=== PATIENT | female | born 1985 | race Caucasian/White ===

== ENCOUNTER → 2017-10-21 11:15 | Outpatient (CLI) | payer OTHER, SELFPAY ==
[2017-10-21 12:44] LABS: Absolute Lymphocyte Count 1.04 X10^3/ul (0.83-4.51); Absolute Neutrophil Count 6.4 X10^3/uL (2.0-7.7); Basophil# 0.01 X10^3/uL; Basophil% 0.1 % (0-1); Eosinophil# 0.02 X10^3/uL; Eosinophils% 0.3 % (0-5); Hematocrit 33.6 % (37-47); Hemoglobin 11.5 g/dl (12.0-15.0); Lymphocyte # 1.04 X10^3/ul (4.0); Lymphocyte % 13.4 % (19-41); Mean Corp Hgb Conc 34.2 g/gl (32-36); Mean Corpuscular Hgb 30.7 pg (27.0-32.0); Mean Corpuscular Volume 89.6 fL (81-99); Mean Platelet Vol. 9.6 fl (6.2-12.0); Monocyte# 0.33 X10^3/uL; Monocyte% 4.3 % (0-10); Neutrophil # 6.35 X10^3/uL (2.7-7.7); Neutrophil % 81.8 % (47-70); Platelet Count 242 K/mm3 (150-450); RBC Distribution Width CV 12.7 % (11.6-14.6); RBC Distribution Width SD 40.7 fl (35.1-43.9); Red Blood Count 3.75 M/mm3 (4.2-5.4); White Blood Count 7.8 K/mm3 (4.4-11.0)
[2017-10-21 12:51] LABS: POSITIVE COUNT NO; POSITIVE DIFFERENTIAL NO; POSITIVE MORPHOLOGY NO
[2017-10-22 10:56] LABS: HIV - WCH Non-Reactive (Nonreactive); Rubella IgG 8.1 IU/mL
[2017-10-22 14:36] LABS: HEPATITIS B SURFACE AG Negative (Negative)
[2017-10-24 05:19] LABS: Rapid Plasmin Reagin (RPR) NONREACTIVE (NONREACTIVE)
== END ==
PROVIDERS: Visit Provider Obstetrics & Gynecology
DX: Z34.90 Encounter for supervision of normal pregnancy, unspecified, unspecified trimester (principal)
CPT/HCPCS: 36415; 85025; 86592; 86703; 86762; 86850; 86900; 87340

== ENCOUNTER → 2017-10-21 12:32 | Outpatient (CLI) | payer SELFPAY ==
--- NOTE | 2017-10-21 12:38 | US_ITS ---
STUDY: SECOND AND THIRD TRIMESTER OBSTETRICAL ULTRASOUND - LIMITED REASON FOR EXAM: Female, 31 years old. Routine survey. LMP: 06/13/17 PRIOR ULTRASOUND: None. TECHNIQUE: Transabdominal ultrasound evaluation was performed. FINDINGS: There is a single intrauterine fetus. The fetus is in a cephalic presentation. There is demonstrated cardiac activity with a heart rate of 155 bpm. There is a normal amniotic fluid volume. The largest amniotic fluid pocket measures 4.9 x 6.5 cm. The placenta is posterior in location and is not low lying. There are Grade 1 placental changes. The cervix measures 4.6 cm in length. BIOMETRY: BPD: 4.06 cm: 18 weeks, 3 days HC: 14.58 cm: 17 weeks, 6 days AC: 12.96 cm: 18 weeks, 4 days FL: 2.80 cm: 18 weeks, 4 days Age by LMP: 18 weeks, 4 days. MARGARET by LMP: 03/20/2018. age by current US: 18 weeks, 3 days. MARGARET by current US: 03/21/2018. Estimated weight: 241 grams, +/- 35 grams US/OB Limited With Biometrics IMPRESSION: Single live intrauterine at 18 weeks, 3 days by current ultrasound with MARGARET of 03/21/2018. Heart rate of 155 bpm. No suspicious sonographic findings Electronically Signed: Rigo Bates MD at 10:24 EDT , Service support ,
== END ==
PROVIDERS: Visit Provider Obstetrics & Gynecology
DX: O09.30 Supervision of pregnancy with insufficient antenatal care, unspecified trimester (principal); Z3A.00 Weeks of gestation of pregnancy not specified
CPT/HCPCS: 76816

== ENCOUNTER → 2017-10-21 17:04 | Outpatient (CLI) | payer OTHER, SELFPAY | PROVIDERS: Visit Provider Obstetrics & Gynecology | DX: Z34.90 Encounter for supervision of normal pregnancy, unspecified, unspecified trimester (principal) | CPT/HCPCS: 87086; 87088 ==

== ENCOUNTER → 2018-01-26 14:07 | Outpatient (CLI) | payer OTHER, SELFPAY ==
[2018-01-26 15:05] LABS: Absolute Lymphocyte Count 1.46 X10^3/ul (0.83-4.51); Absolute Neutrophil Count 9.7 X10^3/uL (2.0-7.7); Basophil# 0.01 X10^3/uL; Basophil% 0.1 % (0-1); Eosinophil# 0.05 X10^3/uL; Eosinophils% 0.4 % (0-5); Hematocrit 33.5 % (37-47); Hemoglobin 11.5 g/dl (12.0-15.0); Lymphocyte # 1.46 X10^3/ul (4.0); Lymphocyte % 12.3 % (19-41); Mean Corp Hgb Conc 34.3 g/gl (32-36); Mean Corpuscular Hgb 31.3 pg (27.0-32.0); Mean Corpuscular Volume 91.3 fL (81-99); Mean Platelet Vol. 9.4 fl (6.2-12.0); Monocyte% 5.1 % (0-10); Neutrophil # 9.69 X10^3/uL (2.7-7.7); Neutrophil % 81.8 % (47-70); Platelet Count 246 K/mm3 (150-450); RBC Distribution Width CV 12.1 % (11.6-14.6); RBC Distribution Width SD 39.7 fl (35.1-43.9); Red Blood Count 3.67 M/mm3 (4.2-5.4); White Blood Count 11.8 K/mm3 (4.4-11.0)
[2018-01-26 15:06] LABS: POSITIVE COUNT NO; POSITIVE DIFFERENTIAL NO; POSITIVE MORPHOLOGY NO
[2018-01-26 15:32] LABS: Glucose Challenge Gest 1H 50g 110 mg/dL (70-140)
== END ==
LOC: PAVLAB 14:12
PROVIDERS: Family Provider Family Medicine; PCP Family Medicine; Referring Provider Obstetrics & Gynecology; Visit Provider Obstetrics & Gynecology
DX: Z34.90 Encounter for supervision of normal pregnancy, unspecified, unspecified trimester (principal)
CPT/HCPCS: 36415; 82950; 85025

== ENCOUNTER → 2018-02-23 19:58 | Outpatient (CLI) | payer OTHER, SELFPAY ==
[2018-02-23 21:50] LABS: Group B Strep DNA By PCR Negative (Negative); Internal Control PASS; Probe Check PASS; Specimen Processing Control PASS
== END ==
PROVIDERS: Family Provider Family Medicine; PCP Family Medicine; Referring Provider Obstetrics & Gynecology; Visit Provider Obstetrics & Gynecology
DX: Z34.90 Encounter for supervision of normal pregnancy, unspecified, unspecified trimester (principal)
CPT/HCPCS: 87081; 87653

== ENCOUNTER 2018-03-14 04:00 | Inpatient (IN) | payer SELFPAY ==
[2018-03-14 02:49] VITALS: BMI 31.5
[2018-03-14 04:50] LABS: Hematocrit 34.8 % (37-47); Hemoglobin 11.5 g/dl (12.0-15.0); Mean Corpuscular Hgb 29.9 pg (27.0-32.0); Mean Corpuscular Volume 90.6 fL (81-99); Mean Platelet Vol. 10.5 fl (6.2-12.0); Platelet Count 240 K/mm3 (150-450); RBC Distribution Width CV 12.2 % (11.6-14.6); RBC Distribution Width SD 39.8 fl (35.1-43.9); Red Blood Count 3.84 M/mm3 (4.2-5.4); White Blood Count 12.4 K/mm3 (4.4-11.0)
[2018-03-14 04:51] LABS: Scan Indicated on CBC? Y/N NO
--- NOTE | 2018-03-14 07:16 | PCM.HP.OB ---
- Problem List (1) Active labor at term Status: Acute (2) Rubella non-immune status, antepartum Status: Acute Comment: mmr pp (3) Supervision of normal Status: Acute Qualifiers: Comment: PRR MARGARET 03/20/18 PC DeidraCriss Nikia History Date of Admission: 03/14/18 Final MARGARET: 03/20/18 Gestational age: 39 Weeks and 1 Days History of this : This is a 32 year-old, at 39 weeks gestational age presents IAL with regular ctx. she made cervical change from 4-5 cm. she denies any abnormal bleeding or lof. she has had an uncomplicated . Allergies No Known Allergies Allergy (Verified 03/14/18 02:55) Home Medications: Home Medications vitamin#30 30 mg iron-10 mg iron-folic acid 1 mg-omg3 capsule 1 cap PO DAILY cap 02/23/18 Smoking Status: Never smoker Alcohol: None Number of Fetus(es): 1 Heart Tracing: fht 140 moderate variability reactive no decels cat I tracing TOCO Analysis: q4-6 History Past Pregnancies: Past PregnanciesPregancy History 4 Elective abortions Hx Para 3 Spontaneous abortions Hx # Term Pregnancies 3 Ectopic pregnancies Hx # Pregnancies Multiple births # of living children 3 Past Pregnancies Del. Date Name GA/Weeks Outcome Route Bth Weight Gen Labor Lgth Anesthesia Del Locatn Provider FOB 12/03/10 Evelyne 40 live - full term 7lb7 ounces Female none kylie kearns 03/04/13 Deidra 40 live - full term 7lb 14 ounces Female Kylie Kearns 08/11/15 Criss 40 live - full term 8 lbs 4 ounces Male [facility] Delivery Date: 08/11/15 On 12/01/17 @ 13:58 [employer] [employer] No issues during or delivery. Delivery Date: 03/04/13 On 12/01/17 @ 14:00 [facility] [employer] No issues during or delivery. Delivery Date: 12/03/10 On 12/01/17 @ 13:57 [facility] [employer] No issues during or delivery. Labs: Mom's Labs & Results 03/14/18 03/14/18 04:30 04:30 WBC 12.4 H RBC 3.84 L Hgb 11.5 L Hct 34.8 L MCV 90.6 MCH 29.9 MCHC 33.0 RDW 12.2 RDW Differential 39.8 Plt Count 240 MPV 10.5 Blood Type A POSITIVE Antibody Screen NEGATIVE Course Did the patient receive Yes care? Labs Blood Type: A RH: POSITIVE RPR/VDRL/Syphilis Nonreactive Rubella status Non-immune HbSAg Negative Date Done: 10/21/17 HIV/AIDS Non-Reactive Group B Strep: Negative Current Obstetrical History Gestational Diabetes No Incompetent Cervix No Infertility No IUGR No Macrosomia No Hypertension/Pre-eclampsia No Placenta Previa/Abruption No PTL/PROM No Uterine anomaly No Oligohydramnios No Polyhydramnios No Multiple gestation No Past Medical History Asthma No Diabetes No Hypertension No Heart disease No Mitral valve prolapse No Neurologic/Seizure disorder/ No Migraines Kidney disease No Liver disease No Varicosities No Clotting disorders/Hx of DVT No Thyroid Dysfunction No Other medical diseases No Psychiatric disorders No Major trauma No Abnormal PAP smear No Sleep apnea No Mammogram in the last 2 years No Social History Marital Status: Alleged father Nikia Kimble Hx Smoking No Smoking Status Never smoker Expected Delivery Method: Spontaneous Vaginal Describe any other labor & delivery plans:: OB Visit. MARGARET Calculator. Estimated Delivery Date 03/20/18. Based on LMP (certain) 06/13/17. Current WG 38w 4d. Number 1. Expected Delivery Route/Plan. . Specific Issue/Plans. flu vaccine: declined. tdap vaccine: declined. rhogam: na. LARC form signed: declined. labor support person: nikia. pain management: IV pain meds. cut cord/dad catch: : yes. PP control planned: . special requests: Review of Systems Constitutional: Denies: Fever, Malaise Eyes: Denies: Blurred vision, Vision Change HEENT: Denies: Head Aches, Visual Changes Cardiovascular: Denies: Chest Pain, Palpitations Respiratory: Denies: Cough, Shortness of Breath, Wheezing Gastrointestinal: Denies: Abdominal Pain, Diarrhea, Nausea, Vomiting Genitourinary: Denies: Dysuria, Hematuria Musculoskeletal: Denies: Joint Pain, Muscle pain Skin: Denies: Lesions, Rash Neurological: Denies: Blurred vision, Focal weakness, Headaches Psychiatric: Denies: Anxiety, Depression Endocrine: Denies: Heat/ Cold Intolerance Hematologic/ Lymphatic: Denies: Easy Bruising, Easy Bleeding Physical Exam General: Alert, Cooperative, No apparent distress HEENT: Atraumatic, Normocephalic. Negative for: Thyromegaly, Lymphadenopathy Cardiovascular: Regular rate Lungs: Normal air movement Abdomen: Soft, Non Tender, Gravid Neurological: Deep Tendon Reflexes 2+/4 and Symmetrical, Neuro grossly intact. Negative for: Clonus SHIFT BOSS: Normal external genitalia. Negative for: Vulvar lesions Estimated gestational size: Appropriate for gestational size Presentation: Cephalic Cervix Dilation (cm): 5 Assessment/Plan All Active Problems (Last Reviewed 03/05/18 @ 10:50 by Shannon Bowen) Active labor at term (Acute) Rubella non-immune status, antepartum (Acute) Supervision of normal (Acute) This is a 32 year-old, , at 39 weeks gestational age presents IAL Patient presents IAL, plan expectant management for , arom clear, pitocin PRN. Pain management: nubain. GBS negative Management of any complications: none I have reviewed the [facility] and made any clinically relevant updates.
--- NOTE | 2018-03-14 07:19 | HP.PCM_ITS ---
- Problem List (1) Active labor at term Status: Acute (2) Rubella non-immune status, antepartum Status: Acute Comment: mmr pp (3) Supervision of normal Status: Acute Qualifiers: Comment: PRR MARGARET 03/20/18 PC Deidra Criss Nikia History Date of Admission: 03/14/18 Final MARGARET: 03/20/18 Gestational age: 39 Weeks and 1 Days History of this : This is a 32 year-old, at 39 weeks gestational age presents IAL with regular ctx. she made cervical change from 4-5 cm. she denies any abnormal bleeding or lof. she has had an uncomplicated . Allergies No Known Allergies Allergy (Verified 03/14/18 02:55) Home Medications: Home Medications vitamin#30 30 mg iron-10 mg iron-folic acid 1 mg-omg3 capsule 1 cap PO DAILY cap 02/23/18 Smoking Status: Never smoker Alcohol: None Number of Fetus(es): 1 Heart Tracing: fht 140 moderate variability reactive no decels cat I tracing TOCO Analysis: q4-6 History Past Pregnancies: Past PregnanciesPregancy History 2 4 Elective abortions Hx Para 3 Spontaneous abortions Hx # Term Pregnancies 3 Ectopic pregnancies Hx # Pregnancies Multiple births # of living children 3 Past Pregnancies Del. Date Name GA/Weeks Outcome Route Bth Weight Gen Labor Lgth Anesthesia Del Locatn Provider FOB 12/03/10 Evelyne 40 live - full term 7lb7 ounces Female none kylie kearns 03/04/13 Deidra 40 live - full term 7lb 14 ounces Female Kylie Kearns 08/11/15 Criss 40 live - full term 8 lbs 4 ounces Male [facility] Delivery Date: 08/11/15 On 12/01/17 @ 13:58 [employer] No issues during or delivery. Delivery Date: 03/04/13 On 12/01/17 @ 14:00 [employer] No issues during or delivery. Delivery Date: 12/03/10 On 12/01/17 @ 13:57 [employer] No issues during or delivery. Labs: Mom's Labs & Results 03/14/18 03/14/18 04:30 04:30 WBC 12.4 H RBC 3.84 L Hgb 11.5 L Hct 34.8 L MCV 90.6 MCH 29.9 MCHC 33.0 RDW 12.2 RDW Differential 39.8 Plt Count 240 MPV 10.5 Blood Type A POSITIVE Antibody Screen NEGATIVE Course Did the patient receive Yes care? Labs Blood Type: A RH: POSITIVE RPR/VDRL/Syphilis Nonreactive Rubella status Non-immune HbSAg Negative Date Done: 10/21/17 HIV/AIDS Non-Reactive Group B Strep: Negative Current Obstetrical History Gestational Diabetes No Incompetent Cervix No Infertility No IUGR No Macrosomia No Hypertension/Pre-eclampsia No Placenta Previa/Abruption No PTL/PROM No Uterine anomaly No Oligohydramnios No Polyhydramnios No Multiple gestation No Past Medical History Asthma No Diabetes No Hypertension No Heart disease No Mitral valve prolapse No Neurologic/Seizure disorder/ No Migraines Kidney disease No Liver disease No Varicosities No Clotting disorders/Hx of DVT No Thyroid Dysfunction No Other medical diseases No Psychiatric disorders No Major trauma No Abnormal PAP smear No Sleep apnea No Mammogram in the last 2 years No Social History Marital Status: Alleged father Nikia Kimble Hx Smoking No Smoking Status Never smoker Expected Delivery Method: Spontaneous Vaginal Describe any other labor & delivery plans:: OB Visit. MARGARET Calculator. Estimated Delivery Date 03/20/18. Based on LMP (certain) 06/13/17. Current WG 38w 4d. Number 1. Expected Delivery Route/Plan. . Specific Issue/Plans. flu vaccine: declined. tdap vaccine: declined. rhogam: na. LARC form signed: declined. labor support person: nikia. pain management: IV pain meds. cut cord/dad catch: : yes. PP control planned: . special requests: Review of Systems Constitutional: Denies: Fever, Malaise Eyes: Denies: Blurred vision, Vision Change HEENT: Denies: Head Aches, Visual Changes Cardiovascular: Denies: Chest Pain, Palpitations Respiratory: Denies: Cough, Shortness of Breath, Wheezing Gastrointestinal: Denies: Abdominal Pain, Diarrhea, Nausea, Vomiting Genitourinary: Denies: Dysuria, Hematuria Musculoskeletal: Denies: Joint Pain, Muscle pain Skin: Denies: Lesions, Rash Neurological: Denies: Blurred vision, Focal weakness, Headaches Psychiatric: Denies: Anxiety, Depression Endocrine: Denies: Heat/ Cold Intolerance Hematologic/ Lymphatic: Denies: Easy Bruising, Easy Bleeding Physical Exam General: Alert, Cooperative, No apparent distress HEENT: Atraumatic, Normocephalic. Negative for: Thyromegaly, Lymphadenopathy Cardiovascular: Regular rate Lungs: Normal air movement Abdomen: Soft, Non Tender, Gravid Neurological: Deep Tendon Reflexes 2+/4 and Symmetrical, Neuro grossly intact. Negative for: Clonus [employer]: Normal external genitalia. Negative for: Vulvar lesions Estimated gestational size: Appropriate for gestational size Presentation: Cephalic Cervix Dilation (cm): 5 Assessment/Plan All Active Problems (Last Reviewed 03/05/18 @ 10:50 by Shannon Bowen) Active labor at term (Acute) Rubella non-immune status, antepartum (Acute) Supervision of normal (Acute) This is a 32 year-old, , at 39 weeks gestational age presents IAL Patient presents IAL, plan expectant management for , arom clear, pitocin PRN. Pain management: nubain. GBS negative Management of any complications: none I have reviewed the [facility] and made any clinically relevant updates.
[2018-03-14] MEDS: Acetaminophen 325 MG Tablet PO (08:21)
[2018-03-14] MEDS: Ondansetron 4 MG/2 ML Vial IV (08:55)
[2018-03-14] MEDS: Nalbuphine 10 MG/ML Ampul IV (09:06)
[2018-03-14] MEDS: Oxytocin 30 units/NS 500 ml 30 UNITS/500 ML IV.SOLN 334 UNITS IV (11:06)
--- NOTE | 2018-03-14 11:17 | PCM.OB.VAG ---
- Problem List (1) Active labor at term Status: Acute (2) Rubella non-immune status, antepartum Status: Acute Comment: mmr pp (3) Supervision of normal Status: Acute Qualifiers: Comment: PRR MARGARET 03/20/18 PC Criss Gay Bony Vaginal Delivery Maternal Presentation: Active Labor 32-year-old at 39 weeks 1 day presents in active labor Amniotic Membrane Rupture Type: Artificial Amniotic Fluid Description: Clear Final MARGARET: 03/20/18 Gestational age: 39 Weeks and 1 Days Date of Procedure: 03/14/18 Pre-Operative Diagnosis: In active labor Post-Operative Diagnosis: Same Surgery/ Procedure Performed: Spontaneous Vaginal Delivery Type of Anesthesia: None Description of Procedure: Patient began pushing and delivered the head in the CORNELIUS presentation. The head was delivered atraumatically. The anterior and posterior shoulders delivered without complication followed by the rest of the and the infant was placed on the maternal abdomen. Delayed cord clamping was employed for approximately 60 seconds. Cord was clamped and cut and gentle traction was applied to the cord and the placenta delivered spontaneously immediately following it was noted to be intact with three-vessel cord. The perineum and vagina were inspected and noted to have no laceration. EBL was 200 cc. Patient and infant tolerated delivery well. Presentation: CORNELIUS Placental Delivery Description: Spontaneous Placenta Disposition: [facility] Cord Vessel Description: 3 Vessels Cord Entanglement: None Estimated Blood Loss: 200 A gender: Female Episiotomy Description: None Laceration: None Medications given after delivery: IV Pitocin Complications: - - no implants, devices, or grafts
[2018-03-14] MEDS: Oxytocin 30 units/NS 500 ml 30 UNITS/500 ML IV.SOLN 167 UNITS IV (11:36)
[2018-03-14] MEDS: Naproxen 250 MG Tablet PO ×2 (13:30→21:48)
[2018-03-14 17:08] VITALS: BP 92/55; PULSE 60; RESP 16; TEMP 36.8
[2018-03-14 19:24] VITALS: BP 104/61; PULSE 89; RESP 18; TEMP 36.7; O2SAT 97
[2018-03-14] MEDS: Acetaminophen 500 MG Tablet 1000 MG PO (20:01)
[2018-03-14 23:53] VITALS: BP 104/55; PULSE 78; RESP 17; TEMP 37.2; O2SAT 97
[2018-03-15 04:10] VITALS: BP 107/65; PULSE 75; RESP 17; TEMP 36.9; O2SAT 99
--- NOTE | 2018-03-15 05:52 | PCM.PN.OB ---
Patient Problems: Active and Suspected Problems (Last Reviewed 03/05/18 @ 10:50 by Shannon Bowen) Active labor at term (Acute) Subjective: doing well no complaints - Physical Exam General: Alert, Oriented x3 Vital Signs Temp Pulse Resp BP Pulse Ox 98.9 F 78 17 104/55 L 97 03/14/18 23:53 03/14/18 23:53 03/14/18 23:53 03/14/18 23:53 03/14/18 23:53 Oxygen Delivery Method Room Air Weight: 172 lb 6.424 oz Body Mass Index (BMI) 31.5 Laboratory Tests Past 24 Hrs 03/14/18 04:30 Blood Type A POSITIVE Antibody Screen NEGATIVE Medical Necessity - Tobacco Use Smoking Status: Never smoker Assessment/Plan All Active Problems (Last Reviewed 03/05/18 @ 10:50 by Shannon Bowen) Active labor at term (Acute) Rubella non-immune status, antepartum (Acute) Supervision of normal (Acute) s/p PPD # 1 1. routine post delivery care 2. breast feeding- support given 3. rh positive 4. rubella non-immune- encouraged [facility]
--- NOTE | 2018-03-15 05:57 | DCINST_ITS ---
Discharge Diet: No Restrictions Discharge Activity: Return to Normal Activity, May not drive while taking narcotic pain medications., May Shower May resume sexual activity in: 4-6 weeks Call your doctor if your incision/area has: Continuous Slow Oozing, Sudden Increased Bleeding, Increased Pain/ Swelling, Increased Redness, Foul Smelling Discharge Additional Instructions: If you experience any of the following, contact your healthcare provider. * Bleeding that soaks a pad every hour for 2 hours * Fever 100.4 or higher * Unrelieved incision or abdominal pain * Swelling, redness, discharge or bleeding from your incision or episiotomy site * Your incision begins to separate * Problems urinating (including inability to urinate or burning while urinating). * Visual changes * Severe headache * Flu-like symptoms * Pain or redness in one of both of your breasts * Pain, warmth, tenderness or swelling in your legs, especially the calf area * Frequent nausea and vomiting * Symptoms of depression or anxiety If you experience any of the following, call 911 or go to the nearest Emergency Room. * Chest pain * Problems breathing * Seizure activity * Partial or complete paralysis of a body part, slurred speech, weakness or drooping of the face, or a sudden inability to walk or hold your balance Allergies/Adverse Reactions: Allergies No Known Allergies Allergy (Verified 03/14/18 02:55) Medications to take at Discharge vitamin#30 30 mg iron-10 mg iron-folic acid 1 mg-omg3 capsule 1 cap PO DAILY cap 02/23/18 Ibuprofen [Motrin] 600 mg PO Q6H PRN PRN #30 tablet 03/15/18 The following prescriptions were given: Ibuprofen [Motrin] 600 mg PO Q6H PRN PRN #30 tablet PRN Reason: Pain Please Follow Up With: Nicci Casillas MD - [phone] When: Call to make an appointment with your doctor in 6 weeks. If you had elevated Blood pressure or 4th degree laceration you will need to be seen in 2 weeks. Primary Care Physician: Salvador Tucker MD [Primary Care Provider] - Test Results: Test results from this visit will be discussed in further detail at your follow- up appointment, if applicable.
[2018-03-15] MEDS: Naproxen 250 MG Tablet PO (06:00)
[2018-03-15 08:50] VITALS: BP 114/70; PULSE 87; RESP 16; TEMP 36.9
[2018-03-15] MEDS: Prenatal Vits Tablet 1 TABLET PO (11:00)
[2018-03-15] MEDS: Acetaminophen 500 MG Tablet 1000 MG PO (11:05)
[2018-03-15 13:29] VITALS: BP 106/68; PULSE 102; RESP 18; TEMP 36.7
== END 2018-03-15 14:15 | disposition home or self-care (01) | DRG 807 ==
LOC: WPOUT 04:05
PROVIDERS: Admitting Provider Obstetrics & Gynecology; Family Provider Family Medicine; PCP Family Medicine; Visit Provider Obstetrics & Gynecology
DX: O80 Encounter for full-term uncomplicated delivery (principal); Z37.0 Single live birth; Z3A.39 39 weeks gestation of pregnancy
CPT/HCPCS: 59025; 59050; 85027; 86850; 86900; 99218; 90686; G0378; J2405

== ENCOUNTER → 2018-04-29 17:16 | Outpatient (CLI) | payer OTHER, SELFPAY ==
[2018-04-29 12:27] VITALS: BMI 31.5
[2018-05-04 16:25] LABS: HPV APTIMA, High Risk Negative (Negative)
== END ==
PROVIDERS: Family Provider Family Medicine; PCP Family Medicine; Referring Provider Obstetrics & Gynecology; Visit Provider Obstetrics & Gynecology
DX: Z12.4 Encounter for screening for malignant neoplasm of cervix (principal)
CPT/HCPCS: 87624; 88175; G0145